=== PATIENT | female | born 1990 | race African-American/Black ===

== ENCOUNTER 2017-04-18 05:02 | Emergency (ER) | payer SELFPAY ==
[~2017-04-18] VITALS: Ht 167.6 cm; Wt 61.5 kg
[2017-04-18 06:08] LABS: MCH 30.3 PG (29.0-34.0); MCHC 32.1 G/DL (30.0-36.0); MCV 94.7 FL (83-99); MEAN PLAT.VOLUME 9.7 uM^3 (9.5-12.4); PLATELET COUNT 291 K/uL (156-360); RBC DIS.WIDTH-CV 11.3 % (11.8-14.6); RBC DIS.WIDTH-SD 39.2 % (39-53); RED BLOOD COUNT 4.12 M/uL (3.80-5.20); WHITE BLOOD COUNT 7.1 K/uL (4.1-10.2)
[2017-04-18 06:19] LABS: CHLORIDE 107 mEq/L (99-109); POTASSIUM 3.7 mEq/L (3.7-5.4); SODIUM 140 mEq/L (136-147)
[2017-04-18 06:21] LABS: GLUCOSE 92 mg/dL (70-99)
[2017-04-18 06:23] LABS: ANION GAP 9 MEQ/L (2-14); TOTAL BILIRUBIN 0.4 mg/dL (0.0-1.0)
[2017-04-18 06:25] LABS: ALKALINE PHOSPHATASE 68 IU/L (3-129); GFR ESTIMATE (CALCULATED) > 59 mL/min/
[2017-04-18 06:26] LABS: UREA NITROGEN (BUN) 10 mg/dL (9-23)
[2017-04-18 06:28] LABS: LIPASE 36 U/L (1.0-51.0)
[2017-04-18 06:30] LABS: ADD MIUA? YES; BILIRUBIN NEGATIVE; BLOOD LARGE; COLOR AMBER ((YELLOW)); GLUCOSE (STRIP) NEGATIVE; KETONES NEGATIVE; LEUKOCYTES NEGATIVE; NITRITE NEGATIVE; PROTEIN (STRIP) >=500; SPECIFIC GRAVITY 1.037 (1.000-1.030); UROBILINOGEN 0.2 MG/DL (0.2-1.0)
[2017-04-18 06:36] LABS: RED BLOOD CELLS TNTC /HPF (0-5)
[2017-04-18 06:41] LABS: QUANTITATIVE HCG < 4.0 MIU/ML
[2017-04-18] MEDS ORDERED: TYLENOL WITH C1 EACH PO (07:33)
[2017-04-18 07:51] VITALS: BP 150/72
== END 2017-04-18 07:53 | disposition home or self-care (01) ==
LOC: EME 05:02
PROVIDERS: Nurse Practitioner Family
DX: R10.30 Lower abdominal pain, unspecified (principal); N94.6 Dysmenorrhea, unspecified; J45.909 Unspecified asthma, uncomplicated
CPT/HCPCS: 80053; 81003; 83690; 84702; 85027; 99281; 99283

== ENCOUNTER 2017-05-10 09:27 | Emergency (ER) | payer SELFPAY ==
[~2017-05-10] VITALS: Ht 167.6 cm; Wt 59.1 kg
[~2017-05-10 09:27] MED LIST: TYLENOL WITH C1 EACH PO
[2017-05-10] MEDS ORDERED: ZITHROMAX250 MG PO (11:11)
[2017-05-10 12:13] VITALS: BP 124/74
== END 2017-05-10 12:14 | disposition home or self-care (01) ==
LOC: EME 09:27
DX: J40 Bronchitis, not specified as acute or chronic (principal); J32.9 Chronic sinusitis, unspecified; J45.909 Unspecified asthma, uncomplicated; F17.200 Nicotine dependence, unspecified, uncomplicated
CPT/HCPCS: 87651 90; 99281; 99284

== ENCOUNTER 2017-11-21 11:17 | Emergency (ER) | payer OTHER ==
[~2017-11-21] VITALS: Ht 167.6 cm; Wt 61.3 kg
[~2017-11-21 11:17] MED LIST changes: +ZITHROMAX250 MG PO
[2017-11-21 11:42] LABS: BASOPHIL (%) 0.5 % (0-1); EOSINOPHIL (%) 1.8 % (0-5); EOSINOPHIL COUNT 0.1 K/uL (0-0.3); HEMATOCRIT 37.8 % (36.0-46.0); HEMOGLOBIN 12.6 G/DL (11.9-15.5); LYMPHOCYTE (%) 42.3 % (15-42); LYMPHOCYTE COUNT 1.8 K/uL (1.0-2.8); MCH 31.2 PG (29.0-34.0); MCHC 33.3 G/DL (30.0-36.0); MCV 93.6 FL (83-99); MONOCYTE (%) 5.8 % (3-12); MONOCYTE COUNT 0.3 K/uL (0-0.8); NEUTROPHIL (%) 49.6 % (45-76); NEUTROPHIL COUNT 2.2 K/uL (1.8-6.4); PLATELET COUNT 283 K/uL (156-360); RBC DIS.WIDTH-CV 11.3 % (11.8-14.6); RED BLOOD COUNT 4.04 M/uL (3.80-5.20); WHITE BLOOD COUNT 4.3 K/uL (4.1-10.2)
[2017-11-21 11:49] LABS: CHLORIDE 108 mEq/L (99-109); POTASSIUM 3.8 mEq/L (3.7-5.4); SODIUM 139 mEq/L (136-147)
[2017-11-21 11:51] LABS: GLUCOSE 85 mg/dL (70-99)
[2017-11-21 11:55] LABS: CREATININE 0.7 mg/dL (0.6-1.3); GFR ESTIMATE (CALCULATED) > 59 mL/min/
[2017-11-21 11:56] LABS: UREA NITROGEN (BUN) 6 mg/dL (9-23)
[2017-11-21 12:05] LABS: TROP-I INTERPRETATION NEGATIVE; TROPONIN-I < 0.01 ng/mL (0.0-0.30)
[2017-11-21 12:48] LABS: D-DIMER ELISA < 150.00 ng/mLDDU (<230)
[2017-11-21] MEDS ORDERED: MOTRIN800 MG PO (13:07)
[2017-11-21 13:14] VITALS: BP 115/71
== END 2017-11-21 13:20 | disposition home or self-care (01) ==
LOC: EME 11:17
PROVIDERS: Emergency Medicine
DX: F41.9 Anxiety disorder, unspecified (principal); R07.89 Other chest pain; F17.200 Nicotine dependence, unspecified, uncomplicated; Z88.0 Allergy status to penicillin
CPT/HCPCS: 71045; 80048; 84484; 85025; 85379; 93005; 99281; 99284